=== PATIENT | male | born 1945 | race Caucasian/White ===

== ENCOUNTER → 2016-12-08 | Outpatient (CLI) | payer MEDICARE ==
[~2016-12-08] MED LIST: AUGMENTIN TAB875 MG PO; CRESTOR10 MG PO; ENDOCET 10-3251 EACH PO; GLYCOLAX527 GM PO; MORPHINE SULFAT15 MG PO; NEURONTIN 400400 MG PO; OFEV150 MG PO; OMEPRAZOLE40 MG PO; OMNICEF 300 MG300 MG PO; PREDNISONE 10 M10 MG PO; RANITIDINE HCL300 MG PO; SYNTHROID75 MCG PO; VALIUM 5 MG TAB5 MG PO; VITAMIN D50000 UNIT PO; ZOFRAN ODT 4 MG4 MG PO; ZYRTEC10 M3 PO
== END ==
LOC: EXRD 13:35
DX: R06.02 Shortness of breath (principal); J84.112 Idiopathic pulmonary fibrosis
CPT/HCPCS: 71020

== ENCOUNTER → 2017-01-31 | Outpatient (CLI) | payer MEDICARE, OTHER | LOC: HEART 5 14:31 | DX: J84.112 Idiopathic pulmonary fibrosis (principal) | CPT/HCPCS: 94060; 94729 ==

== ENCOUNTER 2017-02-07 01:40 | Inpatient (IN) | payer MEDICARE ==
[~2017-02-07] VITALS: Ht 180.3 cm; Wt 104.3 kg
[~2017-02-07 01:40] MED LIST changes: -AUGMENTIN TAB875 MG PO; -CRESTOR10 MG PO; -ENDOCET 10-3251 EACH PO; -GLYCOLAX527 GM PO; -MORPHINE SULFAT15 MG PO; -NEURONTIN 400400 MG PO; -OFEV150 MG PO; -OMEPRAZOLE40 MG PO; -PREDNISONE 10 M10 MG PO; -RANITIDINE HCL300 MG PO; -SYNTHROID75 MCG PO; -VALIUM 5 MG TAB5 MG PO; -VITAMIN D50000 UNIT PO; -ZOFRAN ODT 4 MG4 MG PO; -ZYRTEC10 M3 PO
[2017-02-07] MEDS ORDERED: GLYCOLAX527 GM PO (05:19)
[2017-02-07] MEDS ORDERED: PREDNISONE 10 M10 MG PO (05:20)
[2017-02-07] MEDS ORDERED: OFEV150 MG PO (05:20)
[2017-02-07] MEDS ORDERED: VITAMIN D50000 UNIT PO (05:21)
[2017-02-07] MEDS ORDERED: ZYRTEC10 M3 PO (05:22)
[2017-02-07] MEDS ORDERED: VALIUM 5 MG TAB5 MG PO (05:22)
[2017-02-07] MEDS ORDERED: ENDOCET 10-3251 EACH PO (05:23)
[2017-02-07] MEDS ORDERED: RANITIDINE HCL300 MG PO (05:24)
[2017-02-07] MEDS ORDERED: SYNTHROID75 MCG PO (05:25)
[2017-02-07] MEDS ORDERED: MORPHINE SULFAT15 MG PO (05:25)
[2017-02-07] MEDS ORDERED: ZOFRAN ODT 4 MG4 MG PO (05:26)
[2017-02-07] MEDS ORDERED: CRESTOR10 MG PO (05:27)
[2017-02-07] MEDS ORDERED: OMEPRAZOLE40 MG PO (05:27)
[2017-02-07] MEDS ORDERED: NEURONTIN 400400 MG PO (05:28)
[2017-02-07 07:46] LABS: HEMOGLOBIN 14.5 gm/dl (14.0-17.5); RED BLOOD COUNT 4.74 M/UL (4.20-5.50); WHITE BLOOD COUNT 15.8 K/UL (4.5-11.0)
[2017-02-08 04:26] LABS: HEMOGLOBIN 13.5 gm/dl (14.0-17.5); RED BLOOD COUNT 4.37 M/UL (4.20-5.50)
[2017-02-08 04:28] LABS: WHITE BLOOD COUNT 19.9 K/UL (4.5-11.0)
[2017-02-09 04:10] LABS: RED BLOOD COUNT 4.29 M/UL (4.20-5.50); WHITE BLOOD COUNT 20.7 K/UL (4.5-11.0)
[2017-02-09 04:29] LABS: BUN/CREATININE RATIO 23 (0-10)
[2017-02-09] MEDS ORDERED: AUGMENTIN TAB875 MG PO (12:01)
== END 2017-02-09 14:27 | disposition home or self-care (01) | DRG 196 ==
LOC: PROG CARE 04:41
PROVIDERS: Emergency Medicine; ADMIT Internal Medicine
DX: J84.10 Pulmonary fibrosis, unspecified (principal); J96.21 Acute and chronic respiratory failure with hypoxia; Z87.891 Personal history of nicotine dependence; Z99.81 Dependence on supplemental oxygen; T38.0X5A Adverse effect of glucocorticoids and synthetic analogues, initial encounter; D72.829 Elevated white blood cell count, unspecified; D69.6 Thrombocytopenia, unspecified; J44.9 Chronic obstructive pulmonary disease, unspecified; Z66 Do not resuscitate; I12.9 Hypertensive chronic kidney disease with stage 1 through stage 4 chronic kidney disease, or unspecified chronic kidney disease; N18.9 Chronic kidney disease, unspecified
CPT/HCPCS: ECHO; 36415; 36600; 71010; 71020; 76705; 80048; 80053; 82550; 82553; 82607; 82746; 82803; 83735; 84484; 85027; 87040; 93005; 93306; 94640; 94664; J1335; J1940; J1956; J2920; J7050

== ENCOUNTER → 2017-06-22 | Outpatient (CLI) | payer MEDICARE ==
[~2017-06-22] MED LIST changes: +AUGMENTIN TAB875 MG PO; +CRESTOR10 MG PO; +ENDOCET 10-3251 EACH PO; +GLYCOLAX527 GM PO; +MORPHINE SULFAT15 MG PO; +NEURONTIN 400400 MG PO; +OFEV150 MG PO; +OMEPRAZOLE40 MG PO; +PREDNISONE 10 M10 MG PO; +RANITIDINE HCL300 MG PO; +SYNTHROID75 MCG PO; +VALIUM 5 MG TAB5 MG PO; +VITAMIN D50000 UNIT PO; +ZOFRAN ODT 4 MG4 MG PO; +ZYRTEC10 M3 PO
== END ==
LOC: HEART 5 14:58
DX: J84.112 Idiopathic pulmonary fibrosis (principal)
CPT/HCPCS: 94060; 94729